=== PATIENT | male | born 1985 ===

== ENCOUNTER 2016-10-05 21:34 | Emergency (ER) | payer SELFPAY ==
[~2016-10-05] VITALS: Ht 172.7 cm; Wt 90.0 kg
[2016-10-05 21:41] VITALS: BP 129/86
[2016-10-05 21:52] LABS: GLUCOSE,POINT OF CARE 219 MG/DL (70-110)
== END 2016-10-06 00:41 | disposition left against medical advice (07) ==
LOC: EMS 21:37
DX: M79.651 Pain in right thigh (principal); Z53.21 Procedure and treatment not carried out due to patient leaving prior to being seen by health care provider
CPT/HCPCS: 82962